=== PATIENT | female | born 1935 | race Caucasian/White ===

== ENCOUNTER 2017-10-26 07:22 | Inpatient (IN) | payer MEDICARE, OTHER ==
[~2017-10-26 07:22] MED LIST: Lactated Ringers 1,000 ML IV SCH; Lidocaine 1%/Sod Bicarbonate in NS 8.4% 1 ML Syringe IDERM PRN; Sodium Chloride 0.9% 10 ML Syringe FLUSH PRN
[2017-10-26] MEDS ORDERED: fentaNYL 100 MCG/2 ML SDV ONE (07:35)
[2017-10-26] MEDS ORDERED: Propofol 200 MG/20 ML SDV ONE ×3 (07:35→11:35)
[2017-10-26] MEDS ORDERED: Ondansetron 4 MG/2 ML SDV ONE (07:35)
[2017-10-26] MEDS ORDERED: Midazolam 1 MG/ML 2 ML SDV ONE (07:36)
[2017-10-26] MEDS ORDERED: Lidocaine 1% 4 ML ONE (07:36)
[2017-10-26] MEDS ORDERED: ceFAZolin 1 GM Vial ONE (07:36)
[2017-10-26] MEDS ORDERED: Bupivacaine 0.75% 30 ML SDV ONE (07:48)
--- NOTE | 2017-10-26 08:01 | PCM.PREANE ---
Preanesthetic Assessment - Anesthesia/Transfusion/Family Hx Anesthesia History: Prior Anesthesia Without Reaction Family History of Anesthesia Reaction: No Transfusion History: No Prior Transfusion(s) - Review of Systems General: No Symptoms Pulmonary: No Symptoms Cardiovascular: No Symptoms Gastrointestinal: No Symptoms Neurological: No Symptoms Other: Reports: Easy Bruising - Physical Assessment NPO Status Date: 10/25/17 NPO Status Time: 00:00 Pulse: 55 O2 Sat by Pulse Oximetry: 100 Respiratory Rate: 16 Blood Pressure: 152/79 Temperature: 36.9 C Height: 1.52 m Weight: 49.442 kg ASA Class: 2 Mental Status: Alert & Oriented x3 Dentition: Reports: Bridge (top and bottom) Thyro-Mental Finger Breadths: 3 Mouth Opening Finger Breadths: 3 ROM/Head Extension: Limited/Partial (arthritis) Lungs: Clear to Auscultation, Normal Respiratory Effort Cardiovascular: Regular Rate, Regular Rhythm - Lab Values: Laboratory Last Values MRSA (PCR) Negative 10/14/17 13:11 - Allergies Allergies/Adverse Reactions: Allergies Allergy/AdvReac Type Severity Reaction Status Date / Time codeine Allergy Redness Verified 10/23/17 15:12 hydrocodone Allergy Nausea and Verified 10/23/17 15:12 Vomiting - Blood Blood Available: Yes Product(s) Available: PRBC - Anesthesia Plan Pre-Op Medication Ordered: None - Acknowledgements Anesthesia Type Planned: Spinal Pt an Appropriate Candidate for the Planned Anesthesia: Yes Alternatives and Risks of Anesthesia Discussed w Pt/Guardian: Yes Pt/Guardian Understands and Agrees with Anesthesia Plan: Yes PreAnesthesia Questionnaire HEENT History: Reports: None, Impaired Vision Cardiovascular History: Reports: Hypertension Respiratory History: Reports: None Gastrointestinal History: Reports: None, GERD 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: Musculoskeletal History: Reports: Osteoarthritis Neurological History: Reports: Other (See Below) Other Neuro History: back surgery Psychiatric History: Reports: None Endocrine/Metabolic History: Reports: Hypothyroidism Hematologic History: Reports: None Immunologic History: Reports: None Oncologic (Cancer) History: Reports: None Dermatologic History: Reports: None - Past Surgical History Head Surgeries/Procedures: Reports: None HEENT Surgical History: Reports: Cataract Surgery Cardiovascular Surgical History: Reports: None Respiratory Surgical History: Reports: None GI Surgical History: Reports: Colonoscopy Female Surgical History: Reports: D&C, Tubal Ligation Male Surgical History: Reports: None Endocrine Surgical History: Reports: None Neurological Surgical History: Reports: None Musculoskeletal Surgical History: Reports: None Oncologic Surgical History: Reports: None Dermatological Surgical History: Reports: None - SUBSTANCE USE Smoking Status *Q: Never Smoker Tobacco Use Within Last Twelve Months: No Second Hand Smoke Exposure: No Days Per Week of Alcohol Use: 1 Number of Drinks Per Day: 1 Total Drinks Per Week: 1 Recreational Drug Use History: No - HOME MEDS Home Medications: Home Meds Lisinopril 10 mg PO DAILY 05/19/15 [History] Cholecalciferol (Vitamin D3) [Vitamin D3] 5,000 unit PO DAILY 10/23/17 [History] Denosumab [Prolia] 1 dose SQ ASDIRECTED 10/23/17 [History] Ipratropium [place] 1 spray NASBOTH ASDIRECTED 10/23/17 [History] Levothyroxine 25 mcg PO DAILY 10/23/17 [History] Meclizine [Antivert] 50 mg PO DAILY PRN 10/23/17 [History] Multivitamin [Daily Coleen] 1 tab PO DAILY 10/23/17 [History] - CURRENT (IN HOUSE) MEDS Current Meds: Current Medications Lactated Ringer's (Ringers, Lactated) 1,000 mls @ 125 mls/hr IV ASDIRECTED KATERINE Lidocaine/Sodium Bicarbonate (Buffered Lidocaine 1% In Ns 8.4%) 0.25 ml IDERM ONETIME PRN PRN Reason: Prior to IV Start Sodium Chloride (Saline Flush) 10 ml FLUSH ASDIRECTED PRN PRN Reason: Keep Vein Open Discontinued Medications Bupivacaine HCl (Sensorcaine-Mpf 0.75%) Confirm Administered Dose 30 ml .ROUTE .STK-MED ONE Stop: 10/26/17 07:49 Cefazolin Sodium (Ancef) Confirm Administered Dose 2 gm .ROUTE .STK-MED ONE Stop: 10/26/17 07:37 Fentanyl (Sublimaze) Confirm Administered Dose 100 mcg .ROUTE .STK-MED ONE Stop: 10/26/17 07:36 Lidocaine HCl (Xylocaine-Mpf 1%) Confirm Administered Dose 4 mls @ as directed .ROUTE .STK-MED ONE Stop: 10/26/17 07:37 Midazolam HCl (Versed 1 Mg/Ml) Confirm Administered Dose 2 mg .ROUTE .STK-MED ONE Stop: 10/26/17 07:37 Ondansetron HCl (Zofran) Confirm Administered Dose 4 mg .ROUTE .STK-MED ONE Stop: 10/26/17 07:36 Propofol (Diprivan 20 Ml) Confirm Administered Dose 200 mg .ROUTE .STK-MED ONE Stop: 10/26/17 07:36
[2017-10-26] MEDS ORDERED: Morphine PF 10 MG/10 ML SDV ONE (08:20)
[2017-10-26] MEDS: ceFAZolin 1 GM Vial ONE ×2 (11:08→11:37)
[2017-10-26] MEDS: Bupivacaine 0.25% 30 ML SDV ONE ×2 (11:08→11:42)
[2017-10-26] MEDS: Iodine/Sodium Iodide 2% Tincture 30 ML Bottle ONE ×2 (11:09→11:35)
[2017-10-26] MEDS: Morphine 8 MG, EPINEPHrine 0.3 MG, Cefuroxime 750 MG, Ketorolac 30 MG, Sodium Chloride ... ONE ×10 (11:09→11:41)
[2017-10-26] MEDS ORDERED: Naloxone 0.4 MG/ML SDV IVPUSH PRN (11:10)
[2017-10-26] MEDS ORDERED: Cyclobenzaprine 10 MG Tab PO PRN (11:10)
[2017-10-26] MEDS: Vancomycin 1 GM SDV ONE ×2 (11:10→11:43)
[2017-10-26] MEDS ORDERED: Ondansetron 4 MG/2 ML SDV IVPUSH PRN ×2 (11:10→12:11)
[2017-10-26] MEDS ORDERED: Magnesium Hydroxide 400 MG/5 ML Susp 30 ML Cup PO PRN (11:10)
[2017-10-26] MEDS ORDERED: Acetaminophen/oxyCODONE 325-5 MG Tab PO PRN (11:10)
[2017-10-26] MEDS ORDERED: Morphine 8 MG, EPINEPHrine 0.3 MG, Cefuroxime 750 MG, Ketorolac 30 MG, Sodium Chloride ... ONE ×5 (11:10)
[2017-10-26] MEDS ORDERED: Bisacodyl 5 MG Tab PO PRN (11:10)
[2017-10-26] MEDS ORDERED: Sennosides 8.6 MG Tab PO PRN (11:10)
[2017-10-26] MEDS ORDERED: Morphine 2 MG/ML Syringe IVPUSH PRN (11:10)
[2017-10-26] MEDS ORDERED: ePHEDrine/Normal Saline 25 MG/5 ML Syringe ONE (11:11)
[2017-10-26] MEDS ORDERED: Denosumab 60 MG/1 ML Syringe SCH (11:15)
[2017-10-26] MEDS ORDERED: IPRATROPIUM 0.06% NASBOTH SCH (11:15)
[2017-10-26] MEDS ORDERED: Lactated Ringers 1,000 ML ONE (11:58)
[2017-10-26] MEDS ORDERED: ePHEDrine 50 MG/ML SDV IVPUSH PRN (12:11)
[2017-10-26] MEDS ORDERED: diphenhydrAMINE 50 MG/ML SDV IVPUSH PRN (12:11)
[2017-10-26] MEDS ORDERED: fentaNYL 100 MCG/2 ML SDV IVPUSH PRN (12:11)
--- NOTE | 2017-10-26 12:13 | PCM.POSTAN ---
POST ANESTHESIA ASSESSMENT - MENTAL STATUS Mental Status: Alert, Oriented - VITAL SIGNS Pulse Rate: 69 SaO2: 100 Resp Rate: 15 Blood Pressure: 104/50 Temperature: 97.5 F - RESPIRATORY Respiratory Status: Respiratory Rate WNL, Airway Patent, O2 Saturation Stable, Supplemental Oxygen - CARDIOVASCULAR CV Status: Pulse Rate WNL, Blood Pressure Stable - GASTROINTESTINAL GI Status: No Symptoms - PAIN Pain Score: 0 - POST OP HYDRATION Hydration Status: Adequate & Stable
--- NOTE | 2017-10-26 12:55 | CR ---
Pelvis and right hip: AP view of the pelvis was obtained as well as lateral view of the right hip. Comparison: No prior hip exam. Previous lumbar spine surgery is noted. Right hip prosthesis is seen. Components are aligned. Underlying bony structures are intact. Soft tissue air around the right hip from the surgical procedure is seen. Joint space within the left hip is preserved. Impression: 1. Previous lumbar spine surgery. 2. Recently placed right hip prosthesis which has an unremarkable postop radiographic appearance. Diagnostic code #2
[2017-10-26] MEDS: ceFAZolin 2 GM in Premix Bag 1 BAG IV SCH ×2 (16:39→23:04)
[2017-10-26] MEDS: Ketorolac 15 MG/ML SDV IVPUSH PRN (20:23)
[2017-10-26] MEDS: Docusate Sodium 100 MG Cap PO SCH (20:24)
[2017-10-26] MEDS: Famotidine 20 MG Tab PO SCH (20:24)
[2017-10-26] MEDS: Acetaminophen/Codeine 300-30 MG Tab PO PRN (22:50)
[2017-10-27] MEDS: Ketorolac 15 MG/ML SDV IVPUSH PRN (04:44)
[2017-10-27] MEDS: Acetaminophen/Codeine 300-30 MG Tab PO PRN ×2 (04:48→11:53)
[2017-10-27] MEDS ORDERED: Levothyroxine 25 MCG Tab PO SCH (06:00)
--- NOTE | 2017-10-27 07:15 | PCM.CONSN ---
- General Info Date of Service: 10/27/17 - Patient Data Vitals - Most Recent: Last Vital Signs Temp 97.5 F 10/27/17 04:22 Pulse 65 10/27/17 04:22 Resp 16 10/27/17 04:22 BP 116/61 10/27/17 04:22 Pulse Ox 100 10/27/17 04:22 Weight - Most Recent: 112 lb 4.8 oz I&O - Last 24 Hours: Intake & Output 10/26/17 10/27/17 10/27/17 22:59 06:59 14:59 Intake Total 500 850 Output Total 400 750 Balance 100 100 Lab Results Last 24 Hours: Laboratory Results - last 24 hr 10/26/17 10/27/17 Range/Units 07:50 06:05 WBC 6.52 (3.98-10.04) K/mm3 RBC 3.54 L (3.98-5.22) M/mm3 Hgb 11.0 L (11.2-15.7) gm/L Hct 34.2 (34.1-44.9) % MCV 96.6 H (79.4-94.8) fl MCH 31.1 (25.6-32.2) pg MCHC 32.2 (32.2-35.5) g/dl RDW Std Deviation 44.3 (36.4-46.3) fL Plt Count 110 L (182-369) K/mm3 MPV 10.7 (9.4-12.3) fl Blood Type O POSITIVE Gel Antibody Screen Negative Med Orders - Current: Current Medications Acetaminophen/Codeine Phosphate (Tylenol With Codeine No.3 300mg/30mg) 1 - 2 tab PO Q6H PRN PRN Reason: Pain Last Admin: 10/27/17 04:48 Dose: 2 tab Aspirin (Ecotrin) 325 mg PO BID KATERINE Bisacodyl (Dulcolax) 5 mg PO DAILY PRN PRN Reason: Constipation Cholecalciferol (Vitamin D3) 5,000 unit PO DAILY KATERINE Cyclobenzaprine HCl (Flexeril) 10 mg PO TID PRN PRN Reason: Spasms Last Admin: 10/26/17 20:25 Dose: 10 mg Docusate Sodium (Colace) 100 mg PO BID KATERINE Last Admin: 10/26/17 20:24 Dose: 100 mg Famotidine (Pepcid) 20 mg PO Q12H [facility] Last Admin: 10/26/17 20:24 Dose: 20 mg Cefazolin Sodium/Dextrose 2 gm (/ Premix) 50 mls @ 100 mls/hr IV Q8H [facility] Stop: 10/27/17 08:29 Last Admin: 10/26/17 23:04 Dose: 100 mls/hr Ipratropium [place] (Atrovent 0.06% Nasal [place]) 0 ml NASBOTH ASDIRECTED [facility] Ketorolac Tromethamine (Toradol) 15 mg IVPUSH Q6H PRN PRN Reason: Pain Last Admin: 10/27/17 04:44 Dose: 15 mg Levothyroxine Sodium (Levothyroxine) 25 mcg PO ACBREAKFAST [facility] Last Admin: 10/27/17 05:00 Dose: 25 mcg Lisinopril (Prinivil) 10 mg PO DAILY [facility] Magnesium Hydroxide (Milk Of Magnesia) 30 ml PO BID PRN PRN Reason: Constipation Meclizine HCl (Antivert) 50 mg PO DAILY PRN PRN Reason: as directed Morphine Sulfate (Morphine) 2 mg IVPUSH Q2H PRN PRN Reason: Breakthrough Pain Multivitamins (Thera) 1 each PO DAILY [facility] Ondansetron HCl (Zofran) 4 mg IVPUSH Q6H PRN PRN Reason: Nausea/Vomiting Senna (Senna) 8.6 mg PO BID PRN PRN Reason: Constipation Discontinued Medications Bupivacaine HCl (Sensorcaine-Mpf 0.75%) Confirm Administered Dose 30 ml .ROUTE .STK-MED ONE Stop: 10/26/17 07:49 Bupivacaine HCl (Marcaine 0.25%) Confirm Administered Dose 30 ml .ROUTE .STK- MED ONE Stop: 10/26/17 07:57 Last Admin: 10/26/17 11:42 Dose: 30 ml Cefazolin Sodium (Ancef) Confirm Administered Dose 2 gm .ROUTE .STK-MED ONE Stop: 10/26/17 07:37 Cefazolin Sodium (Ancef) Confirm Administered Dose 2 gm .ROUTE .STK-MED ONE Stop: 10/26/17 07:57 Last Admin: 10/26/17 11:37 Dose: 2 gm Morphine Sulfate 8 mg/Epinephrine HCl 0.3 mg/Cefuroxime Sodium 750 mg/Ketorolac Tromethamine 30 mg/Sodium Chloride 17 ml 0 mg .XX ONETIME ONE Stop: 10/26/17 09:16 Last Admin: 10/26/17 11:41 Dose: 788.3 mg Morphine Sulfate 8 mg/Epinephrine HCl 0.3 mg/Cefuroxime Sodium 750 mg/Ketorolac Tromethamine 30 mg/Sodium Chloride 27.9 ml 0 mg .XX ONETIME ONE Stop: 10/26/17 11:11 Last Admin: 10/26/17 15:07 Dose: Not Given Denosumab (Prolia) mg .XX ASDIRECTED [facility] Diphenhydramine HCl (Benadryl) 25 mg IVPUSH Q6H PRN PRN Reason: pruritis Stop: 10/26/17 14:00 Ephedrine Sulfate (Ephedrine In Ns) Confirm Administered Dose 25 mg .ROUTE .STK- MED ONE Stop: 10/26/17 11:12 Ephedrine Sulfate (Ephedrine Sulfate) 5 mg IVPUSH ASDIRECTED PRN PRN Reason: Hypotension Stop: 10/26/17 14:00 Fentanyl (Sublimaze) Confirm Administered Dose 100 mcg .ROUTE .STK-MED ONE Stop: 10/26/17 07:36 Fentanyl (Sublimaze) 50 mcg IVPUSH Q5M PRN PRN Reason: Pain Stop: 10/26/17 14:00 Lactated Ringer's (Ringers, Lactated) 1,000 mls @ 125 mls/hr IV ASDIRECTED [facility] Stop: 10/26/17 23:00 Last Admin: 10/26/17 07:50 Dose: 125 mls/hr Lidocaine HCl (Xylocaine-Mpf 1%) Confirm Administered Dose 4 mls @ as directed .ROUTE .STK-MED ONE Stop: 10/26/17 07:37 Lactated Ringer's (Ringers, Lactated) Confirm Administered Dose 1,000 mls @ as directed .ROUTE .STK-MED ONE Stop: 10/26/17 11:59 Iodine (Iodine 2% Mild Tincture) Confirm Administered Dose 30 ml .ROUTE .STK- MED ONE Stop: 10/26/17 07:57 Last Admin: 10/26/17 11:35 Dose: 18 ml Lidocaine/Sodium Bicarbonate (Buffered Lidocaine 1% In Ns 8.4%) 0.25 ml IDERM ONETIME PRN PRN Reason: Prior to IV Start Stop: 10/27/17 18:00 Last Admin: 10/26/17 07:50 Dose: 0.25 ml Midazolam HCl (Versed 1 Mg/Ml) Confirm Administered Dose 2 mg .ROUTE .STK-MED ONE Stop: 10/26/17 07:37 Morphine Sulfate (Duramorph Pf) Confirm Administered Dose 10 mg .ROUTE .STK-MED ONE Stop: 10/26/17 08:21 Naloxone HCl (Narcan) 0.1 mg IVPUSH Q5M PRN PRN Reason: Oversedation Ondansetron HCl (Zofran) Confirm Administered Dose 4 mg .ROUTE .STK-MED ONE Stop: 10/26/17 07:36 Ondansetron HCl (Zofran) 4 mg IVPUSH ONETIME PRN PRN Reason: Nausea/Vomiting Stop: 10/26/17 14:00 Oxycodone/Acetaminophen (Percocet 325-5 Mg) 1 - 2 tab PO Q4H PRN PRN Reason: Pain Last Admin: 10/26/17 17:04 Dose: 2 tab Propofol (Diprivan 20 Ml) Confirm Administered Dose 200 mg .ROUTE .STK-MED ONE Stop: 10/26/17 07:36 Propofol (Diprivan 20 Ml) Confirm Administered Dose 200 mg .ROUTE .STK-MED ONE Stop: 10/26/17 11:02 Propofol (Diprivan 20 Ml) Confirm Administered Dose 200 mg .ROUTE .STK-MED ONE Stop: 10/26/17 11:36 Sodium Chloride (Saline Flush) 10 ml FLUSH ASDIRECTED PRN PRN Reason: Keep Vein Open Stop: 10/26/17 18:00 Tranexamic Acid (Cyklokapron) Confirm Administered Dose 1,000 mg .ROUTE .STK- MED ONE Stop: 10/26/17 07:57 Last Admin: 10/26/17 11:44 Dose: 1,000 mg Vancomycin HCl (Vancomycin) Confirm Administered Dose 1 gm .ROUTE .STK-MED ONE Stop: 10/26/17 07:57 Last Admin: 10/26/17 11:43 Dose: 1 gm Consult PN Assessment/Plan Procedures: Procedures EMERGENCY DEPT VISIT (05/19/15)
--- NOTE | 2017-10-27 07:42 | PCM.CONS ---
H&P History of Present Illness - General Date of Service: 10/27/17 Admit Problem/Dx: Admission Diagnosis/Problem Admission Diagnosis/Problem Osteoarthritis of hip Source of Information: Patient, Old Records, Provider, RN Notes Reviewed History Limitations: Reports: Physical Impairment - History of Present Illness Initial Comments - Free Text/Narative: This is an 82-year-old, white female, with past medical history of HTN, Impaired Vision, Hypothyroidism Osteoporosis, Vitamin D Deficiency, OA and Hip Pain who underwent right total hip arthroplasty post operative day 1. Patient is doing relatively well. Currently, her pain is controlled. She denies any acute issues. Medicine was consulted for postoperative care. Right Hip Pain Score (Numeric/FACES): 0 - Related Data Allergies/Adverse Reactions: Allergies Allergy/AdvReac Type Severity Reaction Status Date / Time codeine Allergy Redness Verified 10/23/17 15:12 hydrocodone AdvReac Nausea and Verified 10/26/17 11:11 Vomiting Home Medications: Home Meds Lisinopril 10 mg PO DAILY 05/19/15 [History] Cholecalciferol (Vitamin D3) [Vitamin D3] 5,000 unit PO DAILY 10/23/17 [History] Denosumab [Prolia] 1 dose SQ ASDIRECTED 10/23/17 [History] Ipratropium [place] 1 spray NASBOTH ASDIRECTED PRN 10/23/17 [History] Levothyroxine 25 mcg PO DAILY 10/23/17 [History] Meclizine [Antivert] 50 mg PO DAILY PRN 10/23/17 [History] Multivitamin [Daily [place]] 1 tab PO DAILY 10/23/17 [History] Acetaminophen with Codeine [Tylenol with Codeine #3 Tablet] 1 - 2 each PO Q6H PRN #40 tablet 10/26/17 [Rx] Aspirin [Ecotrin] 325 mg PO BID #84 tab.ec 10/26/17 [Rx] Bisacodyl [Dulcolax] 5 mg PO DAILY PRN tablet 10/26/17 [Rx] Docusate Sodium [Colace] 100 mg PO BID cap 10/26/17 [Rx] Famotidine [Pepcid] 20 mg PO Q12H tablet 10/26/17 [Rx] Magnesium Hydroxide [Milk of Magnesia] 30 ml PO BID PRN cup 07/09/18 [Rx] Sennosides [Senna] 8.6 mg PO BID PRN tablet 10/26/17 [Rx] Past Medical History HEENT History: Reports: None, Impaired Vision Cardiovascular History: Reports: Hypertension Respiratory History: Reports: None Gastrointestinal History: Reports: None, GERD Genitourinary History: Reports: None 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: Musculoskeletal History: Reports: Osteoarthritis Neurological History: Reports: Other (See Below) Other Neuro History: back surgery Psychiatric History: Reports: None Endocrine/Metabolic History: Reports: Hypothyroidism Hematologic History: Reports: None Immunologic History: Reports: None Oncologic (Cancer) History: Reports: None Dermatologic History: Reports: None - Infectious Disease History Infectious Disease History: Reports: Chicken Pox, Measles, Mumps - Past Surgical History Head Surgeries/Procedures: Reports: None HEENT Surgical History: Reports: Cataract Surgery Cardiovascular Surgical History: Reports: None Respiratory Surgical History: Reports: None GI Surgical History: Reports: Colonoscopy Female Surgical History: Reports: D&C, Tubal Ligation Male Surgical History: Reports: None Endocrine Surgical History: Reports: None Neurological Surgical History: Reports: None Musculoskeletal Surgical History: Reports: None Oncologic Surgical History: Reports: None Dermatological Surgical History: Reports: None Social & Family History - Family History Family Medical History: Noncontributory - Tobacco Use Smoking Status *Q: Never Smoker Second Hand Smoke Exposure: No - Caffeine Use Caffeine Use: Reports: Coffee - Alcohol Use Days Per Week of Alcohol Use: 1 Number of Drinks Per Day: 1 Total Drinks Per Week: 1 - Recreational Drug Use Recreational Drug Use: No H&P Review of Systems - Review of Systems: Review Of Systems: See Below General: Reports: Fever, Chills HEENT: Reports: No Symptoms Pulmonary: Reports: No Symptoms Cardiovascular: Reports: No Symptoms Gastrointestinal: Reports: Nausea, Vomiting. Denies: Abdominal Pain Genitourinary: Reports: No Symptoms Musculoskeletal: Reports: No Symptoms Skin: Reports: No Symptoms Psychiatric: Reports: Anxiety, Agitation, Hallucinations. Denies: Confusion Neurological: Reports: Difficulty Walking, Gait Disturbance Hematologic/Lymphatic: Reports: No Symptoms Immunologic: Reports: No Symptoms Exam - Exam Exam: See Below - Vital Signs Vital Signs: Last Vital Signs Temp 36.4 C 10/27/17 04:22 Pulse 65 10/27/17 04:22 Resp 16 10/27/17 04:22 BP 116/61 10/27/17 04:22 Pulse Ox 100 10/27/17 04:22 Weight: 50.938 kg - Exam General: Alert, Oriented, Cooperative HEENT: Conjunctiva Clear, EACs Clear, EOMI, Hearing Intact, Mucosa Moist & [place] , Nares Patent, Normal Nasal Septum, Pupils Equal, Pupils Reactive Neck: Supple, Trachea Midline, Full Range of Motion Lungs: Normal Respiratory Effort, Decreased Breath Sounds Cardiovascular: Regular Rate, Regular Rhythm GI/Abdominal Exam: Normal Bowel Sounds, Soft, Non-Tender, No Organomegaly, No Distention, No Abnormal Bruit, No Mass (Female) Exam: Deferred Rectal (Female) Exam: Deferred Back Exam: Normal Inspection, Full Range of Motion (left lower extremity) Extremities: Normal Inspection, Normal Range of Motion, Non-Tender, Normal Capillary Refill Peripheral Pulses: 2+: Posterior Tibial (L), Posterior Tibial (R), Dorsalis Pedis (L), Dorsalis Pedis (R) Skin: Warm, Dry, Intact, Other Skin Alteration Location (Drawings Not To Scale): 1 - wound dressing: clean, dry and intact Neuro Extensive - Mental Status: Oriented x3, Normal Cognition, Memory Intact Neuro Extensive - Motor, Sensory, Reflexes: CN II-XII Intact, Abnormal Gait Psychiatric: Alert, Normal Affect, Normal Mood - Patient Data Lab Results Last 24 hrs: Laboratory Results - last 24 hr 10/26/17 10/27/17 Range/Units 07:50 06:05 WBC 6.52 (3.98-10.04) K/mm3 RBC 3.54 L (3.98-5.22) M/mm3 Hgb 11.0 L (11.2-15.7) gm/L Hct 34.2 (34.1-44.9) % MCV 96.6 H (79.4-94.8) fl MCH 31.1 (25.6-32.2) pg MCHC 32.2 (32.2-35.5) g/dl RDW Std Deviation 44.3 (36.4-46.3) fL Plt Count 110 L (182-369) K/mm3 MPV 10.7 (9.4-12.3) fl Blood Type O POSITIVE Gel Antibody Screen Negative Result Diagrams: 10/27/17 06:05 10/27/17 06:05 Consult PN Assessment/Plan POD#: 1 Procedures: Procedures EMERGENCY DEPT VISIT (05/19/15) Problem List Initiated/Reviewed/Updated: Yes Plan: Assessment: Acute: Post-Operative Care State - Stable - Continue to monitor for hemodynamic instability S/p Right Total Hip Arthroplasty - Stable - DVT and Pain Management as per primary team Hx/o Chronic Right Hip Pain - Pain Management as per primary team Relative Hypotension - Likely 2/2 Medications - Patient clinically stable - Will monitor Chronic: OA/DJD HTN Hypothyroidism Osteoporosis Vitamin D Deficiency Plan: She is clinically stable Routine AM labs Continue PT/OT IS q2 awake Thank you for the opportunity to participate in the management of this patient
--- NOTE | 2017-10-27 07:49 | PCM.SURGPN ---
- General Info Date of Service: 10/27/17 POD#: 1 Functional Status: Reports: Pain Controlled, Tolerating Diet, Ambulating, Urinating, Incentive Spirometry, Other (The pt feels prepared for discharge to home.) - Patient Data Vitals - Most Recent: Last Vital Signs Temp 97.5 F 10/27/17 04:22 Pulse 65 10/27/17 04:22 Resp 16 10/27/17 04:22 BP 116/61 10/27/17 04:22 Pulse Ox 100 10/27/17 04:22 Weight - Most Recent: 112 lb 4.8 oz I&O - Last 24 Hours: Intake & Output 10/26/17 10/27/17 10/27/17 22:59 06:59 14:59 Intake Total 500 850 Output Total 400 750 Balance 100 100 Lab Results Last 24 Hrs: Laboratory Results - last 24 hr 10/26/17 10/27/17 Range/Units 07:50 06:05 WBC 6.52 (3.98-10.04) K/mm3 RBC 3.54 L (3.98-5.22) M/mm3 Hgb 11.0 L (11.2-15.7) gm/L Hct 34.2 (34.1-44.9) % MCV 96.6 H (79.4-94.8) fl MCH 31.1 (25.6-32.2) pg MCHC 32.2 (32.2-35.5) g/dl RDW Std Deviation 44.3 (36.4-46.3) fL Plt Count 110 L (182-369) K/mm3 MPV 10.7 (9.4-12.3) fl Blood Type O POSITIVE Gel Antibody Screen Negative Med Orders - Current: Current Medications Acetaminophen/Codeine Phosphate (Tylenol With Codeine No.3 300mg/30mg) 1 - 2 tab PO Q6H PRN PRN Reason: Pain Last Admin: 10/27/17 04:48 Dose: 2 tab Aspirin (Ecotrin) 325 mg PO BID [facility] Bisacodyl (Dulcolax) 5 mg PO DAILY PRN PRN Reason: Constipation Cholecalciferol (Vitamin D3) 5,000 unit PO DAILY [facility] Cyclobenzaprine HCl (Flexeril) 10 mg PO TID PRN PRN Reason: Spasms Last Admin: 10/26/17 20:25 Dose: 10 mg Docusate Sodium (Colace) 100 mg PO BID [facility] Last Admin: 10/26/17 20:24 Dose: 100 mg Famotidine (Pepcid) 20 mg PO Q12H [facility] Last Admin: 10/26/17 20:24 Dose: 20 mg Cefazolin Sodium/Dextrose 2 gm (/ Premix) 50 mls @ 100 mls/hr IV Q8H [facility] Stop: 10/27/17 08:29 Last Admin: 10/26/17 23:04 Dose: 100 mls/hr Ipratropium [place] (Atrovent 0.06% Nasal [place]) 0 ml NASBOTH ASDIRECTED [facility] Ketorolac Tromethamine (Toradol) 15 mg IVPUSH Q6H PRN PRN Reason: Pain Last Admin: 10/27/17 04:44 Dose: 15 mg Levothyroxine Sodium (Levothyroxine) 25 mcg PO ACBREAKFAST [facility] Last Admin: 10/27/17 05:00 Dose: 25 mcg Lisinopril (Prinivil) 10 mg PO DAILY [facility] Magnesium Hydroxide (Milk Of Magnesia) 30 ml PO BID PRN PRN Reason: Constipation Meclizine HCl (Antivert) 50 mg PO DAILY PRN PRN Reason: as directed Morphine Sulfate (Morphine) 2 mg IVPUSH Q2H PRN PRN Reason: Breakthrough Pain Multivitamins (Thera) 1 each PO DAILY [facility] Ondansetron HCl (Zofran) 4 mg IVPUSH Q6H PRN PRN Reason: Nausea/Vomiting Senna (Senna) 8.6 mg PO BID PRN PRN Reason: Constipation Discontinued Medications Bupivacaine HCl (Sensorcaine-Mpf 0.75%) Confirm Administered Dose 30 ml .ROUTE .STK-MED ONE Stop: 10/26/17 07:49 Bupivacaine HCl (Marcaine 0.25%) Confirm Administered Dose 30 ml .ROUTE .STK- MED ONE Stop: 10/26/17 07:57 Last Admin: 10/26/17 11:42 Dose: 30 ml Cefazolin Sodium (Ancef) Confirm Administered Dose 2 gm .ROUTE .STK-MED ONE Stop: 10/26/17 07:37 Cefazolin Sodium (Ancef) Confirm Administered Dose 2 gm .ROUTE .STK-MED ONE Stop: 10/26/17 07:57 Last Admin: 10/26/17 11:37 Dose: 2 gm Morphine Sulfate 8 mg/Epinephrine HCl 0.3 mg/Cefuroxime Sodium 750 mg/Ketorolac Tromethamine 30 mg/Sodium Chloride 17 ml 0 mg .XX ONETIME ONE Stop: 10/26/17 09:16 Last Admin: 10/26/17 11:41 Dose: 788.3 mg Morphine Sulfate 8 mg/Epinephrine HCl 0.3 mg/Cefuroxime Sodium 750 mg/Ketorolac Tromethamine 30 mg/Sodium Chloride 27.9 ml 0 mg .XX ONETIME ONE Stop: 10/26/17 11:11 Last Admin: 10/26/17 15:07 Dose: Not Given Denosumab (Prolia) mg .XX ASDIRECTED [facility] Diphenhydramine HCl (Benadryl) 25 mg IVPUSH Q6H PRN PRN Reason: pruritis Stop: 10/26/17 14:00 Ephedrine Sulfate (Ephedrine In Ns) Confirm Administered Dose 25 mg .ROUTE .STK- MED ONE Stop: 10/26/17 11:12 Ephedrine Sulfate (Ephedrine Sulfate) 5 mg IVPUSH ASDIRECTED PRN PRN Reason: Hypotension Stop: 10/26/17 14:00 Fentanyl (Sublimaze) Confirm Administered Dose 100 mcg .ROUTE .STK-MED ONE Stop: 10/26/17 07:36 Fentanyl (Sublimaze) 50 mcg IVPUSH Q5M PRN PRN Reason: Pain Stop: 10/26/17 14:00 Lactated Ringer's (Ringers, Lactated) 1,000 mls @ 125 mls/hr IV ASDIRECTED [facility] Stop: 10/26/17 23:00 Last Admin: 10/26/17 07:50 Dose: 125 mls/hr Lidocaine HCl (Xylocaine-Mpf 1%) Confirm Administered Dose 4 mls @ as directed .ROUTE .STK-MED ONE Stop: 10/26/17 07:37 Lactated Ringer's (Ringers, Lactated) Confirm Administered Dose 1,000 mls @ as directed .ROUTE .STK-MED ONE Stop: 10/26/17 11:59 Iodine (Iodine 2% Mild Tincture) Confirm Administered Dose 30 ml .ROUTE .STK- MED ONE Stop: 10/26/17 07:57 Last Admin: 10/26/17 11:35 Dose: 18 ml Lidocaine/Sodium Bicarbonate (Buffered Lidocaine 1% In Ns 8.4%) 0.25 ml IDERM ONETIME PRN PRN Reason: Prior to IV Start Stop: 10/27/17 18:00 Last Admin: 10/26/17 07:50 Dose: 0.25 ml Midazolam HCl (Versed 1 Mg/Ml) Confirm Administered Dose 2 mg .ROUTE .STK-MED ONE Stop: 10/26/17 07:37 Morphine Sulfate (Duramorph Pf) Confirm Administered Dose 10 mg .ROUTE .STK-MED ONE Stop: 10/26/17 08:21 Naloxone HCl (Narcan) 0.1 mg IVPUSH Q5M PRN PRN Reason: Oversedation Ondansetron HCl (Zofran) Confirm Administered Dose 4 mg .ROUTE .STK-MED ONE Stop: 10/26/17 07:36 Ondansetron HCl (Zofran) 4 mg IVPUSH ONETIME PRN PRN Reason: Nausea/Vomiting Stop: 10/26/17 14:00 Oxycodone/Acetaminophen (Percocet 325-5 Mg) 1 - 2 tab PO Q4H PRN PRN Reason: Pain Last Admin: 10/26/17 17:04 Dose: 2 tab Propofol (Diprivan 20 Ml) Confirm Administered Dose 200 mg .ROUTE .STK-MED ONE Stop: 10/26/17 07:36 Propofol (Diprivan 20 Ml) Confirm Administered Dose 200 mg .ROUTE .STK-MED ONE Stop: 10/26/17 11:02 Propofol (Diprivan 20 Ml) Confirm Administered Dose 200 mg .ROUTE .STK-MED ONE Stop: 10/26/17 11:36 Sodium Chloride (Saline Flush) 10 ml FLUSH ASDIRECTED PRN PRN Reason: Keep Vein Open Stop: 10/26/17 18:00 Tranexamic Acid (Cyklokapron) Confirm Administered Dose 1,000 mg .ROUTE .STK- MED ONE Stop: 10/26/17 07:57 Last Admin: 10/26/17 11:44 Dose: 1,000 mg Vancomycin HCl (Vancomycin) Confirm Administered Dose 1 gm .ROUTE .STK-MED ONE Stop: 10/26/17 07:57 Last Admin: 10/26/17 11:43 Dose: 1 gm - Exam Wound/Incisions: Dressing Dry and Intact General: Alert, Cooperative, No Acute Distress Lungs: Normal Respiratory Effort Extremities: Other (NVS intact for RLE. Karrie's negative. Right thigh soft.) - Problem List Review Problem List Initiated/Reviewed/Updated: Yes - My Orders Last 24 Hours: Active Orders 24 hr Category Date Time Status Patient Status [ADT] Routine ADT 10/26/17 11:10 Active Ambulate [RC] ,15, Care 10/26/17 11:10 Active Communication Order [RC] BID Care 10/26/17 12:11 Active Communication Order [RC] ROUTINE Care 10/26/17 12:11 Inactive Insert Aldana Catheter [Insert Urinary Catheter] [OM.PC] Care 10/26/17 10:20 Ordered Q24H May Shower [RC] ASDIRECTED Care 10/26/17 11:10 Active Notify Provider Consults [RC] ASDIRECTED Care 10/26/17 11:12 Active Notify Provider [RC] ASDIRECTED Care 10/26/17 12:11 Active Oxygen Therapy [RC] PRN Care 10/26/17 11:10 Active Pulse Oximetry [RC] ASDIRECTED Care 10/26/17 12:11 Active RT Incentive Spirometry [RC] Q1HWA Care 10/26/17 11:09 Active Ready for Discharge [RC] PER UNIT ROUTINE Care 10/27/17 07:42 Active Up to Chair [RC] ,15 Care 10/26/17 11:10 Active Vital Signs [RC] Q4HR Care 10/26/17 12:11 Active Consult to Physician [CONS] Routine Cons 10/26/17 11:10 Active OT Evaluation and Treatment [CONS] Routine Cons 10/26/17 11:09 Active PT Evaluation and Treatment [CONS] Routine Cons 10/26/17 11:09 Active Regular Diet [DIET] Diet 10/26/17 Dinner Active COMPREHENSIVE METABOLIC PN,CMP [CHEM] AM Lab 10/27/17 06:05 Received Acetaminophen/Codeine [Tylenol with Codeine No.3 300MG/ Med 10/26/17 17:13 Active 30MG] 1 - 2 tab PO Q6H PRN Aspirin [Ecotrin] Med 10/27/17 09:00 Active 325 mg PO BID Bisacodyl [Dulcolax] Med 10/26/17 11:10 Active 5 mg PO DAILY PRN Cholecalciferol (Vitamin D3) [Vitamin D3] Med 10/27/17 09:00 Active 5,000 unit PO DAILY Cyclobenzaprine [Flexeril] Med 10/26/17 11:10 Active 10 mg PO TID PRN Docusate Sodium [Colace] Med 10/26/17 21:00 Active 100 mg PO BID Famotidine [Pepcid] Med 10/26/17 21:00 Active 20 mg PO Q12H Ipratropium [Atrovent 0.06% Nasal [place]] Med 10/26/17 11:15 Active 0 ml NASBOTH ASDIRECTED Ketorolac [Toradol] Med 10/26/17 11:10 Active 15 mg IVPUSH Q6H PRN Levothyroxine Med 10/27/17 06:00 Active 25 mcg PO ACBREAKFAST Lisinopril [Prinivil] Med 10/27/17 09:00 Active 10 mg PO DAILY Magnesium Hydroxide [Milk of Magnesia] Med 10/26/17 11:10 Active 30 ml PO BID PRN Meclizine [Antivert] Med 10/26/17 11:14 Active 50 mg PO DAILY PRN Morphine Med 10/26/17 11:10 Active 2 mg IVPUSH Q2H PRN Multivitamins,Therapeutic [Thera] Med 10/27/17 09:00 Active 1 each PO DAILY Ondansetron [Zofran] Med 10/26/17 11:10 Active 4 mg IVPUSH Q6H PRN Sennosides [Senna] Med 10/26/17 11:10 Active 8.6 mg PO BID PRN ceFAZolin [Ancef] 2 gm Med 10/26/17 16:00 Active Premix Bag 1 bag IV Q8H Antiembolic Hose [OM.PC] Per Unit Routine Oth 10/26/17 11:12 Ordered Hip Precautions Posterior [OM.PC] Routine Oth 10/26/17 11:09 Ordered Ice Therapy [OM.PC] Per Unit Routine Oth 10/26/17 11:11 Ordered Pulse Oximetry Continuous Monitoring [OM.PC] Routine Oth 10/26/17 12:11 Active Sequential Compression Device [OM.PC] Per Unit Routine Oth 10/26/17 11:10 Ordered Resuscitation Status Routine Resus Stat 10/26/17 11:10 Ordered Medication Orders Acetaminophen/Codeine Phosphate (Tylenol With Codeine No.3 300mg/30mg) 1 - 2 tab PO Q6H PRN PRN Reason: Pain Last Admin: 10/27/17 04:48 Dose: 2 tab Admin: 10/26/17 22:50 Dose: 2 tab Aspirin (Ecotrin) 325 mg PO BID [facility] Bisacodyl (Dulcolax) 5 mg PO DAILY PRN PRN Reason: Constipation Cholecalciferol (Vitamin D3) 5,000 unit PO DAILY [facility] Cyclobenzaprine HCl (Flexeril) 10 mg PO TID PRN PRN Reason: Spasms Last Admin: 10/26/17 20:25 Dose: 10 mg Docusate Sodium (Colace) 100 mg PO BID [facility] Last Admin: 10/26/17 20:24 Dose: 100 mg Famotidine (Pepcid) 20 mg PO Q12H [facility] Last Admin: 10/26/17 20:24 Dose: 20 mg Cefazolin Sodium/Dextrose 2 gm (/ Premix) 50 mls @ 100 mls/hr IV Q8H [facility] Stop: 10/27/17 08:29 Last Admin: 10/26/17 23:04 Dose: 100 mls/hr Infusion: 10/26/17 17:09 Dose: 100 mls/hr Admin: 10/26/17 16:39 Dose: 100 mls/hr Ipratropium [place] (Atrovent 0.06% Nasal [place] [facility]) 0 ml NASBOTH ASDIRECTED [facility] Ketorolac Tromethamine (Toradol) 15 mg IVPUSH Q6H PRN PRN Reason: Pain Last Admin: 10/27/17 04:44 Dose: 15 mg Admin: 10/26/17 20:23 Dose: 15 mg Levothyroxine Sodium (Levothyroxine) 25 mcg PO ACBREAKFAST [facility] Last Admin: 10/27/17 05:00 Dose: 25 mcg Lisinopril (Prinivil) 10 mg PO DAILY [facility] Magnesium Hydroxide (Milk Of Magnesia) 30 ml PO BID PRN PRN Reason: Constipation Meclizine HCl (Antivert) 50 mg PO DAILY PRN PRN Reason: as directed Morphine Sulfate (Morphine) 2 mg IVPUSH Q2H PRN PRN Reason: Breakthrough Pain Multivitamins (Thera) 1 each PO DAILY [facility] Ondansetron HCl (Zofran) 4 mg IVPUSH Q6H PRN PRN Reason: Nausea/Vomiting Senna (Senna) 8.6 mg PO BID PRN PRN Reason: Constipation - Assessment Assessment (Free Text/Narrative):: POD#1 - right ASHLEY - Plan Plan (Free Text/Narrative):: 1. Hgb 11.0. 2. Discharge to home today. 3. ASHLEY precautions. 4. Medical management per Hospitalist service. 5. ASA BID and TEDs, frequent mobility. The pt's case was discussed with Dr. Luke.
--- NOTE | 2017-10-27 07:57 | PCM.DCSUM1 ---
Discharge Summary - Hospital Course Brief History: Tonia is an 82 yo female who underwent right ASHLEY with Dr. Luke on 10-26-2017. The procedure was completed under spinal anesthesia. The pt tolerated the procedure well and was admitted to the Medical-Surgical Unit. Medical management was provided by the Hospitalist service. The pt's Hospital course was uneventful. The pt's Hgb on POD#1 was 11.0. On POD#1, 325mg ASA BID was initiated for VTE prophylaxis. SCDs and TEDs were also ordered. A Mepilex dressing was placed at the incision site at the time of surgery and remained clean and dry. The pt participated in P.T. and O.T. and progressed well. She followed the ASHLEY precautions. The pt was allowed to WBAT. On POD#1 , the pt was deemed appropriate to discharge to home with family. - Discharge Data Discharge Date: 10/27/17 Discharge Disposition: Home, Self-Care 01 Condition: Good - Patient Summary/Data Consults: Consultations 10/26/17 11:09 OT Evaluation and Treatment [CONS] Routine PT Evaluation and Treatment [CONS] Routine 10/26/17 11:10 Consult to Physician [CONS] Routine - Patient Instructions Diet: Usual Diet as Tolerated Activity: Apply Ice, As Tolerated, Elevate Extremity, Full Weight Bearing Driving: Do Not Drive Showering/Bathing: May Shower Wound/Incision Care: Keep Operative Site/Wound Site Clean and Dry, Do NOT Change Dressing Notify Provider of: Fever, Increased Pain, Swelling and Redness, Drainage, Nausea and/or Vomiting Other/Special Instructions: Please get up and moving around every hour while awake. This helps to prevent blood clots. Please use your walker and have help with mobility as needed. Follow the total hip precautions. Please take 325mg Aspirin TWICE daily. The aspirin is being used for blood clot prevention and not for pain management so please do not miss a dose of the medication. At home, please complete the exercises that you learned during the Hospital stay. Schedule for physical therapy. Use the pain medication as needed. The medication may cause drowsiness and constipation. Contact your primary care provider for instructions if you are constipated. You may use a stool softener like docusate sodium or Colace 100mg twice daily and/or a laxative like Miralax daily for constipation. Increase your water and fiber intake while you are using the pain medication. Please try to wean from use of the pain medication as soon as able. Wear the STEVEN hose during the day and you may remove these at night. Elevate the limb to decrease swelling. Place ice to the area often. Place a towel between your skin and the blue pad. Use the incentive spirometer often. Take deep breaths throughout the day. Increase your protein intake while you are healing. Please keep the Mepilex dressing at the hip in place until follow-up. Notify the Clinic if the dressing becomes saturated. Call the Clinic with questions or concerns - [phone]. - Discharge Plan Prescriptions/Med Rec: Acetaminophen with Codeine [Tylenol with Codeine #3 Tablet] 1 - 2 each PO Q6H PRN #40 tablet PRN Reason: Pain Aspirin [Ecotrin] 325 mg PO BID #84 tab.ec Home Medications: Home Meds Lisinopril 10 mg PO DAILY 05/19/15 [History] Cholecalciferol (Vitamin D3) [Vitamin D3] 5,000 unit PO DAILY 10/23/17 [History] Denosumab [Prolia] 1 dose SQ ASDIRECTED 10/23/17 [History] Ipratropium [place] 1 spray NASBOTH ASDIRECTED PRN 10/23/17 [History] Levothyroxine 25 mcg PO DAILY 10/23/17 [History] Meclizine [Antivert] 50 mg PO DAILY PRN 10/23/17 [History] Multivitamin [Daily [place]] 1 tab PO DAILY 10/23/17 [History] Acetaminophen with Codeine [Tylenol with Codeine #3 Tablet] 1 - 2 each PO Q6H PRN #40 tablet 10/26/17 [Rx] Aspirin [Ecotrin] 325 mg PO BID #84 tab.ec 10/26/17 [Rx] Bisacodyl [Dulcolax] 5 mg PO DAILY PRN tablet 10/26/17 [Rx] Docusate Sodium [Colace] 100 mg PO BID cap 10/26/17 [Rx] Famotidine [Pepcid] 20 mg PO Q12H tablet 10/26/17 [Rx] Magnesium Hydroxide [Milk of Magnesia] 30 ml PO BID PRN cup 10/26/17 [Rx] Sennosides [Senna] 8.6 mg PO BID PRN tablet 07/09/18 [Rx] Referrals: Blossom Brewer PA-C [Physician [employer]] - - Patient Data Vitals - Most Recent: Last Vital Signs Temp 97.5 F 10/27/17 04:22 Pulse 65 10/27/17 04:22 Resp 16 10/27/17 04:22 BP 116/61 10/27/17 04:22 Pulse Ox 100 10/27/17 04:22 Weight - Most Recent: 112 lb 4.8 oz I&O - Last 24 hours: Intake & Output 10/26/17 10/27/17 10/27/17 22:59 06:59 14:59 Intake Total 500 850 Output Total 400 750 Balance 100 100 Lab Results - Last 24 hrs: Laboratory Results - last 24 hr 10/26/17 10/27/17 Range/Units 07:50 06:05 WBC 6.52 (3.98-10.04) K/mm3 RBC 3.54 L (3.98-5.22) M/mm3 Hgb 11.0 L (11.2-15.7) gm/L Hct 34.2 (34.1-44.9) % MCV 96.6 H (79.4-94.8) fl MCH 31.1 (25.6-32.2) pg MCHC 32.2 (32.2-35.5) g/dl RDW Std Deviation 44.3 (36.4-46.3) fL Plt Count 110 L (182-369) K/mm3 MPV 10.7 (9.4-12.3) fl Blood Type O POSITIVE Gel Antibody Screen Negative Med Orders - Current: Current Medications Acetaminophen/Codeine Phosphate (Tylenol With Codeine No.3 300mg/30mg) 1 - 2 tab PO Q6H PRN PRN Reason: Pain Last Admin: 10/27/17 04:48 Dose: 2 tab Aspirin (Ecotrin) 325 mg PO BID [facility] Bisacodyl (Dulcolax) 5 mg PO DAILY PRN PRN Reason: Constipation Cholecalciferol (Vitamin D3) 5,000 unit PO DAILY [facility] Cyclobenzaprine HCl (Flexeril) 10 mg PO TID PRN PRN Reason: Spasms Last Admin: 10/26/17 20:25 Dose: 10 mg Docusate Sodium (Colace) 100 mg PO BID [facility] Last Admin: 10/26/17 20:24 Dose: 100 mg Famotidine (Pepcid) 20 mg PO Q12H [facility] Last Admin: 10/26/17 20:24 Dose: 20 mg Cefazolin Sodium/Dextrose 2 gm (/ Premix) 50 mls @ 100 mls/hr IV Q8H [facility] Stop: 10/27/17 08:29 Last Admin: 10/26/17 23:04 Dose: 100 mls/hr Ipratropium [place] (Atrovent 0.06% Nasal [place]) 0 ml NASBOTH ASDIRECTED [facility] Ketorolac Tromethamine (Toradol) 15 mg IVPUSH Q6H PRN PRN Reason: Pain Last Admin: 10/27/17 04:44 Dose: 15 mg Levothyroxine Sodium (Levothyroxine) 25 mcg PO ACBREAKFAST [facility] Last Admin: 10/27/17 05:00 Dose: 25 mcg Lisinopril (Prinivil) 10 mg PO DAILY [facility] Magnesium Hydroxide (Milk Of Magnesia) 30 ml PO BID PRN PRN Reason: Constipation Meclizine HCl (Antivert) 50 mg PO DAILY PRN PRN Reason: as directed Morphine Sulfate (Morphine) 2 mg IVPUSH Q2H PRN PRN Reason: Breakthrough Pain Multivitamins (Thera) 1 each PO DAILY [facility] Ondansetron HCl (Zofran) 4 mg IVPUSH Q6H PRN PRN Reason: Nausea/Vomiting Senna (Senna) 8.6 mg PO BID PRN PRN Reason: Constipation Discontinued Medications Bupivacaine HCl (Sensorcaine-Mpf 0.75%) Confirm Administered Dose 30 ml .ROUTE .STK-MED ONE Stop: 10/26/17 07:49 Bupivacaine HCl (Marcaine 0.25%) Confirm Administered Dose 30 ml .ROUTE .STK- MED ONE Stop: 10/26/17 07:57 Last Admin: 10/26/17 11:42 Dose: 30 ml Cefazolin Sodium (Ancef) Confirm Administered Dose 2 gm .ROUTE .STK-MED ONE Stop: 10/26/17 07:37 Cefazolin Sodium (Ancef) Confirm Administered Dose 2 gm .ROUTE .STK-MED ONE Stop: 10/26/17 07:57 Last Admin: 10/26/17 11:37 Dose: 2 gm Morphine Sulfate 8 mg/Epinephrine HCl 0.3 mg/Cefuroxime Sodium 750 mg/Ketorolac Tromethamine 30 mg/Sodium Chloride 17 ml 0 mg .XX ONETIME ONE Stop: 10/26/17 09:16 Last Admin: 10/26/17 11:41 Dose: 788.3 mg Morphine Sulfate 8 mg/Epinephrine HCl 0.3 mg/Cefuroxime Sodium 750 mg/Ketorolac Tromethamine 30 mg/Sodium Chloride 27.9 ml 0 mg .XX ONETIME ONE Stop: 10/26/17 11:11 Last Admin: 10/26/17 15:07 Dose: Not Given Denosumab (Prolia) mg .XX ASDIRECTED [facility] Diphenhydramine HCl (Benadryl) 25 mg IVPUSH Q6H PRN PRN Reason: pruritis Stop: 10/26/17 14:00 Ephedrine Sulfate (Ephedrine In Ns) Confirm Administered Dose 25 mg .ROUTE .STK- MED ONE Stop: 10/26/17 11:12 Ephedrine Sulfate (Ephedrine Sulfate) 5 mg IVPUSH ASDIRECTED PRN PRN Reason: Hypotension Stop: 10/26/17 14:00 Fentanyl (Sublimaze) Confirm Administered Dose 100 mcg .ROUTE .STK-MED ONE Stop: 10/26/17 07:36 Fentanyl (Sublimaze) 50 mcg IVPUSH Q5M PRN PRN Reason: Pain Stop: 10/26/17 14:00 Lactated Ringer's (Ringers, Lactated) 1,000 mls @ 125 mls/hr IV ASDIRECTED [facility] Stop: 10/26/17 23:00 Last Admin: 10/26/17 07:50 Dose: 125 mls/hr Lidocaine HCl (Xylocaine-Mpf 1%) Confirm Administered Dose 4 mls @ as directed .ROUTE .STK-MED ONE Stop: 10/26/17 07:37 Lactated Ringer's (Ringers, Lactated) Confirm Administered Dose 1,000 mls @ as directed .ROUTE .STK-MED ONE Stop: 10/26/17 11:59 Iodine (Iodine 2% Mild Tincture) Confirm Administered Dose 30 ml .ROUTE .STK- MED ONE Stop: 10/26/17 07:57 Last Admin: 10/26/17 11:35 Dose: 18 ml Lidocaine/Sodium Bicarbonate (Buffered Lidocaine 1% In Ns 8.4%) 0.25 ml IDERM ONETIME PRN PRN Reason: Prior to IV Start Stop: 10/27/17 18:00 Last Admin: 10/26/17 07:50 Dose: 0.25 ml Midazolam HCl (Versed 1 Mg/Ml) Confirm Administered Dose 2 mg .ROUTE .STK-MED ONE Stop: 10/26/17 07:37 Morphine Sulfate (Duramorph Pf) Confirm Administered Dose 10 mg .ROUTE .STK-MED ONE Stop: 10/26/17 08:21 Naloxone HCl (Narcan) 0.1 mg IVPUSH Q5M PRN PRN Reason: Oversedation Ondansetron HCl (Zofran) Confirm Administered Dose 4 mg .ROUTE .STK-MED ONE Stop: 10/26/17 07:36 Ondansetron HCl (Zofran) 4 mg IVPUSH ONETIME PRN PRN Reason: Nausea/Vomiting Stop: 10/26/17 14:00 Oxycodone/Acetaminophen (Percocet 325-5 Mg) 1 - 2 tab PO Q4H PRN PRN Reason: Pain Last Admin: 10/26/17 17:04 Dose: 2 tab Propofol (Diprivan 20 Ml) Confirm Administered Dose 200 mg .ROUTE .STK-MED ONE Stop: 10/26/17 07:36 Propofol (Diprivan 20 Ml) Confirm Administered Dose 200 mg .ROUTE .STK-MED ONE Stop: 10/26/17 11:02 Propofol (Diprivan 20 Ml) Confirm Administered Dose 200 mg .ROUTE .STK-MED ONE Stop: 10/26/17 11:36 Sodium Chloride (Saline Flush) 10 ml FLUSH ASDIRECTED PRN PRN Reason: Keep Vein Open Stop: 10/26/17 18:00 Tranexamic Acid (Cyklokapron) Confirm Administered Dose 1,000 mg .ROUTE .STK- MED ONE Stop: 10/26/17 07:57 Last Admin: 10/26/17 11:44 Dose: 1,000 mg Vancomycin HCl (Vancomycin) Confirm Administered Dose 1 gm .ROUTE .STK-MED ONE Stop: 10/26/17 07:57 Last Admin: 10/26/17 11:43 Dose: 1 gm
[2017-10-27] MEDS: Famotidine 20 MG Tab PO SCH (08:02)
[2017-10-27] MEDS: Docusate Sodium 100 MG Cap PO SCH (08:02)
[2017-10-27] MEDS: ceFAZolin 2 GM in Premix Bag 1 BAG IV SCH (08:02)
[2017-10-27] MEDS ORDERED: Multivitamins,Therapeutic Tab PO SCH (09:00)
[2017-10-27] MEDS ORDERED: Cholecalciferol (Vitamin D3) 5,000 UNIT Tab PO SCH (09:00)
[2017-10-27] MEDS ORDERED: Aspirin 325 MG Tab.EC PO SCH (09:00)
[2017-10-27] MEDS ORDERED: Lisinopril 10 MG Tab PO SCH (09:00)
--- NOTE | 2017-10-27 10:23 | PCM48HPAN ---
Post Anesthesia Note - EVALUATION WITHIN 48HRS OF ANESTHETIC Vital Signs in Normal Range: Yes Patient Participated in Evaluation: Yes Respiratory Function Stable: Yes Airway Patent: Yes Cardiovascular Function Stable: Yes Hydration Status Stable: Yes Pain Control Satisfactory: Yes Nausea and Vomiting Control Satisfactory: Yes Mental Status Recovered: Yes - COMMENTS/OBSERVATIONS Free Text/Narrative:: Patient denied any anesthetic complications. Very little pain. Walking frequently. Doing well. Denies any pruritus or nausea.
[2017-10-27 11:53] VITALS: BP 104/59
--- NOTE | 2017-11-02 07:13 | PCM.OPNOTE ---
- General Post-Op/Procedure Note Date of Surgery/Procedure: 10/26/17 Operative Procedure(s): right total hip arthroplasty Pre Op Diagnosis: right hip osteoarthrosis Post-Op Diagnosis: Same Anesthesia Technique: Local, MAC, Spinal Primary Surgeon: Zan Luke Anesthesia Provider: Abdoulaye Levine Fire Alarm Operator: Blossom Brewer Fire Alarm Operator: Lexy Herrera EBAna in mLs: 200 Complications: None Condition: Good Free Text/Narrative:: size 52 28/48 MDM size 4 stem
--- NOTE | 2017-11-03 11:07 | OR ---
DATE OF OPERATION: 10/26/2017 SURGEON: Zan Luke MD OPERATION PERFORMED: Right total hip arthroplasty. PREOPERATIVE DIAGNOSIS: Right hip osteoarthrosis. POSTOPERATIVE DIAGNOSIS: Right hip osteoarthrosis. ANESTHESIA: Local MAC with spinal. ANESTHESIA PROVIDER: Abdoulaye Levine CRNA. ASSISTANTS: 1. Blossom Brewer PA-C. 2. Lexy Herrera LPN. ESTIMATED BLOOD LOSS: 200 mL. COMPLICATIONS: None. CONDITION: Stable. IMPLANTS: 1. [place] size 52 solid Tritanium acetabular shell. 2. Janel size 28 x 48 MDM components. 3. [place] size 4 Accolade II femoral stem. DESCRIPTION OF PROCEDURE: The patient was identified in the preoperative holding area, where the proper site was marked and identified by the surgeon. The patient was taken back to the operative theater, where after adequate anesthesia, the patient was placed in left lateral decubitus position. An axillary roll was placed. All bony prominences were well padded. Pegs were then placed and were well padded. The patient's gluteal fold was parallel to the floor. Right hip was then sterilely prepped and draped in the usual sterile fashion. OR time-out was performed. The patient received 2 g IV Ancef. At this time, posterior incision was made centered over the greater trochanter. This was taken down to the IT band and gluteal fascia, which was incised along the incisional length. Charnley retractor was then placed. Short external rotators were identified and takedown of the short external rotators, was done down to the level of the lesser trochanter. The hip was then dislocated. Neck cut guide was then placed. The neck cut was completed. At this time, anterior and posterior acetabular retractors were then placed. Remaining pulvinar and labrum were then removed. Starting with a 44 reamer, I was able to ream up to a 52, which was found to have good purchase. The 52 trial was found to have adequate purchase. At this time, a 52-mm Tritanium acetabular cup was impacted into place and roughly 45 degrees of abduction and 20 degrees of anteversion. At this time, the MDM liner was then impacted into place after the cup had been positioned. Attention was turned to the femur. Box chisel was used out laterally. Starter awl was placed down the canal. Starting with the 0 broach, I was able to broach up to a size 4, which was found to be rotationally and vertically stable. At this time, trial components were placed with a +0 and was found to have adequate evangelical of leg lengths and no instability. Bone hook was used for dislocation of the hip. At this time, size 4 Accolade II stem was impacted into place with a 28 mm x 48 MDM components constructed on the back table, then impacted, and placed on the stem. At this time, the hip was relocated, a #5 Ethibond suture was used for closure of the short external rotators and capsule. 1 L dilute Betadine solution was then irrigated through the hip along with 3 L of pulse lavage irrigation with Ancef too. Periarticular injection was then completed. Topical tranexamic acid and vancomycin powder were then placed, #2 barbed suture was used for closure of the IT band and gluteal fascia, 2-0 Vicryl was used subcutaneously, and Prineo was used for the skin. The patient tolerated the procedure well and sent to PACU in stable condition. MMODAL /[id number]
== END 2017-10-27 12:00 | disposition home or self-care (01) | DRG 470 ==
LOC: JD.MS 07:22
PROVIDERS: ADMIT Orthopaedic Surgery; ATTEND Orthopaedic Surgery
PROC: 0SR90JZ Replacement of Right Hip Joint with Synthetic Substitute, Open Approach (ICD-10-PCS; principal; 2017-10-26)
DX: M16.11 Unilateral primary osteoarthritis, right hip (principal); I10 Essential (primary) hypertension; H54.7 Unspecified visual loss; E03.9 Hypothyroidism, unspecified; M81.0 Age-related osteoporosis without current pathological fracture; E55.9 Vitamin D deficiency, unspecified; K21.9 Gastro-esophageal reflux disease without esophagitis; G89.29 Other chronic pain; I95.2 Hypotension due to drugs; T50.905A Adverse effect of unspecified drugs, medicaments and biological substances, initial encounter; Z88.6 Allergy status to analgesic agent; Z88.5 Allergy status to narcotic agent; Z79.899 Other long term (current) drug therapy; Z79.82 Long term (current) use of aspirin
CPT/HCPCS: 01214; 36415; 73501-26-RT; 73501-RT; 80053; 85027; 86850; 86900; 86901; 87641; 97110-GP; 97116-GP; 97161-GP; 97165-GO; 97530-GO; 97535-GO; A9270-GY; C1776; J0171; J0690; J0697; J1885; J2001; J2250; J2270; J2405; J2704; J3010; J3370; J3490; J7050; J7120